=== PATIENT | female | born 1970 | race Caucasian/White ===

== ENCOUNTER 2016-07-04 04:13 | Day surgery (SDC) | payer BC ==
[2016-06-26 09:54] LABS: HEMATOCRIT 34.5 % (36.0-48.0); HEMOGLOBIN 11.1 g/dL (12.0-16.0)
--- NOTE | ~2016-07-04 | OP ---
Record Of Operation [facility] [address] [place]. [address] NAME: MEGAN BUCKLEY : 74 STATUS : [facility] UNIT#: [id number] AGE: 45 ADM/REG DATE : 07/04/16 MR#: [id number] REPORT SERV DATE: 07/04/16 DICTATED BY: ESTRELLA TIRADO II DATE: 07/04/16 REPORT STATUS : Draft TRANSCRIBED BY: MODKody DATE: 07/04/16 DATE OF PROCEDURE: 07/04/2016 PREOPERATIVE DIAGNOSIS: Left upper extremity radiculopathy secondary to C4-5 herniated nucleus pulposus with C4-5 moderate spondylosis. POSTOPERATIVE DIAGNOSIS: Left upper extremity radiculopathy secondary to C4-5 herniated nucleus pulposus with C4-5 moderate spondylosis. PROCEDURE: 1. C4-5 anterior interbody arthrodesis. 2. Application of prosthetic device, C4-C5. 3. Anterior instrumentation C4-C5. 4. Use of bone marrow aspirate and allograft substitute. 5. Use of the microscope. SURGEON: Estrella Tirado M.D. FLUIDS: 1400 mL LR. ESTIMATED BLOOD LOSS: 15 mL. DRAINS: No drains. COMPLICATIONS: None. IMPLANTS: Alphatec. PREOPERATIVE HISTORY: This is a very friendly 45-year-old female, who works as an [employer]. She did wonderfully approximately 10 years ago when she underwent C5-C7 fusion. She now has left upper extremity radiculopathy secondary to an extruded fragment in the foramina. She has some degree of neck pain. C7-T1 overall appears to be fairly unremarkable in terms of nerve compression. We discussed the rates of success versus failure of the surgery to decrease neck pain and arm pain respectively. DESCRIPTION OF PROCEDURE: After informed consent was obtained, the patient was brought to the operating room at her request, and general anesthesia achieved. She was placed in the supine position, and the neck and iliac crest were prepped and draped in a sterile fashion. The 5 mL of bone marrow were aspirated followed by right-sided longitudinal incision. I was able to incorporate some of the old incision with the new incision. The retropharyngeal approach was now performed, and the subperiosteal exposure was completed. The Reed Fixer retractor was placed, followed by placement of the [place] pins in the C4 and also into the prosthetic device at C5-C6. Gentle distraction was performed. With the microscope now in place, under microscopic visualization, the diskectomy was completed with the pituitary rongeurs, Kerrison rongeurs, and the curettes. The endplates Record Of Operation [facility] [address] [place]. [address] NAME: MEGAN BUCKLEY : 74 STATUS : [facility] PAT#: [id number] AGE: 45 ADM/REG DATE : 07/04/16 MR#: [id number] REPORT SERV DATE: 07/04/16 DICTATED BY: ESTRELLA TIRADO II DATE: 07/04/16 REPORT STATUS : Draft TRANSCRIBED BY: MODKody DATE: 07/04/16 were made to be parallel followed by removal of the posterior vertebral body osteophytes. The posterior longitudinal ligament was evaluated and taken down. The spinal cord was now well identified. Interestingly, we found a large extruded fragment far into the foramina severely compressing the C5 nerve root. The nerve root was now well decompressed and the fragments removed. At this point, the prosthetic device was trialed and chosen and placed at C4-C5. This contained allograft substitute and bone marrow aspirate. The excellent fit was obtained. Following removal of the [place] pins, the anterior fixation device was placed at C4-C5. We were able to place this just adjacent to the previous hardware but without having to remove hardware. At this point, two screws were placed into C4 and C5. Please note, this was a separate plate and screw construct. At this point, multiplanar imaging confirmed acceptable placement of the implants. The standard closure was performed following confirmation of hemostasis. She was then extubated and transferred to PACU in stable condition. Next, at approximately 1215 hours, I saw her in the phase 2 recovery. She was awake, alert, and oriented and stable. Her neck was soft and supple, and she had no edema about the anterior neck. Her voice was without change. At this point, we gave her the option to go home or spend the night. She preferred to go home. I felt that she was stable enough to do so and advised to come to the emergency room immediately for any difficulty breathing. ALVINO/VELASQUEZ Estrella Tirado II, M.D. / [id number] CC: Jeremiah Fam II, M.D.
[~2016-07-04 04:13] MED LIST: MOBIC15 MG PO; NORCO1 TAB PO; PR12.5 PO; TOPAMAX50 MG PO; ZANAFLEX 4 MG TA4 MG PO
== END 2016-07-04 13:33 | disposition home or self-care (01) ==
LOC: SDC 04:13
PROVIDERS: Orthopaedic Surgery
PROC: 0RG1070 Fusion of Cervical Vertebral Joint with Autologous Tissue Substitute, Anterior Approach, Anterior Column, Open Approach (ICD-10-PCS; 2016-07-04)
PROC: 079T3ZX Drainage of Bone Marrow, Percutaneous Approach, Diagnostic (ICD-10-PCS; principal; 2016-07-04 05:45)
DX: M50.121 Cervical disc disorder at C4-C5 level with radiculopathy (principal); M47.22 Other spondylosis with radiculopathy, cervical region; M48.02 Spinal stenosis, cervical region; G43.909 Migraine, unspecified, not intractable, without status migrainosus; Z98.1 Arthrodesis status; Z90.49 Acquired absence of other specified parts of digestive tract; Z79.1 Long term (current) use of non-steroidal anti-inflammatories (NSAID); Z79.899 Other long term (current) drug therapy
CPT/HCPCS: 82962; 84703; 85014; 85018; 87641; 88304; 88311; A9270-GY; C1713; J0690; J1170; J2250; J2270; J2405; J2710; J3010